=== PATIENT | male | born 1975 | race Caucasian/White ===

== ENCOUNTER 2019-05-27 16:03 | Emergency (ER) | payer OTHER ==
[~2019-05-27] VITALS: Ht 172.7 cm; Wt 88.0 kg
[2019-05-27 16:05] VITALS: BP 136/76
--- NOTE | 2019-05-27 16:13 | NUR ---
Patient ambulated to bed 6. RN evaluating patient at bedside.
--- NOTE | 2019-05-27 16:18 | NUR ---
DR DAS AT BEDSIDE EVALUATING PT.
[2019-05-27] MEDS ORDERED: ALUMINUM HYD/MAG/SIMETHICONE 30 ML UDC PO ONE (16:20)
[2019-05-27] MEDS ORDERED: LIDOCAINE VISCOUS 2% 20 ML UDC PO ONE (16:20)
[2019-05-27] MEDS ORDERED: DICYCLOMINE HCL LIQUID 10 MG/5 ML UDC PO ONE (16:20)
--- NOTE | 2019-05-27 16:24 | NUR ---
PT C/O EPIGASTRIC PAIN WITH SOB X 3 WKS, DENIES COUGH .PT AWAKE , ALERT, AFIBRILE, CSE, CBS BLF ,FLAT SOFT NABS ,NONTENDER. MEDHX: ASTHMA
--- NOTE | 2019-05-27 16:44 | NUR ---
dr martinez reevaluating pt.
[2019-05-27 17:00] VITALS: BP 136/76
--- NOTE | 2019-05-27 17:00 | NUR ---
Patient discharged with v/s stable. Written and verbal after care instructions given and explained acute gastritis. Patient alert, oriented and verbalized understanding of instructions. Ambulatory with steady gait. All questions addressed prior to discharge. ID band removed. Patient advised to follow up with PMD. Rx of protonix and maalox given. Patient educated on indication of medication including possible reaction and side effects. Opportunity to ask questions provided and answered.
== END 2019-05-27 17:00 | disposition home or self-care (01) ==
LOC: MED 16:03
DX: K29.70 Gastritis, unspecified, without bleeding (principal); J45.909 Unspecified asthma, uncomplicated; F12.90 Cannabis use, unspecified, uncomplicated
CPT/HCPCS: 93005; 99284

== ENCOUNTER 2023-12-19 20:46 | Emergency (ER) | payer OTHER ==
[~2023-12-19] VITALS: Ht 172.7 cm; Wt 95.3 kg
[2023-12-19 20:57] VITALS: BP 135/84; PULSE 64; RESP 20; TEMP 97.4; O2SAT 97
[2023-12-19 21:03] VITALS: BP 135/84; PULSE 64; RESP 20; TEMP 97.4
[2023-12-19 21:08] VITALS: O2SAT 98
[2023-12-19 21:12] VITALS: O2SAT 97
[2023-12-19] MEDS: KETOROLAC 30 MG/ML VIAL IM ONE (21:29)
== END 2023-12-19 22:14 | disposition home or self-care (01) ==
LOC: MED 20:46
DX: G44.209 Tension-type headache, unspecified, not intractable (principal); J45.909 Unspecified asthma, uncomplicated
CPT/HCPCS: 96372; 99283; J1885